=== PATIENT | male | born 1975 | race Caucasian/White ===

== ENCOUNTER 2023-03-28 17:30 | Emergency (ER) | payer OTHER, SELFPAY ==
[2023-03-28 17:43] VITALS: BP 138/103; PULSE 112; RESP 16; TEMP 36.6; O2SAT 99
--- NOTE | 2023-03-28 20:37 | ED.BACK ---
HPI - Back Pain/Injury General Chief Complaint: Back Pain/Injury Stated Complaint: back pain Time Seen by Provider: 03/28/23 20:37 History of Present Illness HPI Narrative: Patient is a 47-year-old male with history of asthma here with lower back pain. Patient notes history of intermittent back pain over the last several years. Patient notes that last night he had a miss-step and felt him pull something in his back. He notes it is worsening throughout the day today limiting his ability to work. He notes it is bilateral, worse on the right and worse with walking. he has attempted Tylenol at home, last dose around noon today, minimal relief of symptoms. He denies any trauma. He denies any bowel or bladder incontinence, no saddle anesthesia, no numbness or weakness in legs, no history of IVDU, no history of cancer. No fever or chills. Related Data Allergies Allergy/AdvReac Type Severity Reaction Status Date / Time cat dander Allergy Difficulty Verified 03/28/23 20:55 Breathing Penicillins Allergy Itching Verified 03/28/23 20:55 hog hair Allergy Difficulty Uncoded 03/28/23 20:55 Breathing Review of Systems Review of Systems: CONSTITUTIONAL: Denies fever, chills, or sweats. CARDIOVASCULAR: Denies chest pain, palpitations, or edema. RESPIRATORY: Denies cough or dyspnea. GASTROINTESTINAL: Denies abdominal pain, nausea, vomiting, or diarrhea. GENITOURINARY: Denies dysuria or hematuria. SKIN: Denies rash or itching. MUSCULOSKELETAL: Back pain NEUROLOGIC: Denies headache, numbness, or weakness. PMFSH Family History Family History (Updated 03/21/23 @ 09:01 by NENA Orellana) Father Hypertension Heart disease Mother Diabetes mellitus Hypertension Sibling Heart disease Hypertension Grandparent Cancer Diabetes mellitus Hypertension Cerebrovascular accident Social History Social History (Updated 03/21/23 @ 09:12 by NENA Orellana) Smoking status: Current every day smoker Lack of Transportation: No Lack of Food: Sometimes True Current Housing: I Have Housing Concerned About Future Housing: No Difficulty Paying Gas/Electric Bills: No Difficulty Paying for Meds: No Currently Unemployed: YES Education: Grade School Difficulty w/ Childcare or Family Care: No Exam Narrative: GENERAL: Well-appearing, well-nourished, and in no acute distress. HEAD: Normocephalic, atraumatic. EYES: PERRLA and EOMI. ENT: Nares clear. Mucous membranes moist. NECK: Supple. CHEST: Clear to auscultation. No respiratory distress. HEART: Regular rate and rhythm. Normal peripheral pulses. ABDOMEN: Soft, nontender, nondistended. EXTREMITIES: Normal range of motion. + straight leg raise on the right. right paraspinal tenderness present in upper lumbar region, no midline tenderness. SKIN: Warm, dry, no rash. NEURO: No focal deficits. Alert and oriented x3. Normal strength and sensation in lower extremities. PSYCH: Normal mood and affect. Course Course Emergency Course: Chart review performed. Patient here with back pain. No prior ED visits in our system. Patient is a 47-year-old male, healthy, here with back pain, no red flag symptoms. Will do Tylenol, Flexeril, Toradol. Will discharge on Flexeril and Tylenol and Ibuprofen. Patient re-evaluated, has had some relief of his symptoms. Heart rate is improved. Return precautions discussed with patient including any red flag symptoms. He verbalized understanding. Will give him work note. Advised rest. The results of pertinent diagnostic studies and exam findings were discussed. The patient?s provisional diagnosis and plan of care were discussed with the patient and present family. The patient and/or present family expressed understanding of the diagnosis and plan. The nurse was instructed to provide written instructions and appropriate follow-up information. The patient understands their need and responsibility to obtain additiona
[2023-03-28 20:49] VITALS: BP 140/106; PULSE 98; RESP 15; TEMP 36.9; O2SAT 100
[2023-03-28] MEDS: ACETAMINOPHEN 500 MG TABLET 1000 MG PO (21:02)
[2023-03-28] MEDS: CYCLOBENZAPRINE HCL 5 MG TABLET PO (21:02)
[2023-03-28] MEDS: KETOROLAC 15 MG/ML VIAL (*BKC) IM (21:03)
== END 2023-03-28 21:35 | disposition home or self-care (01) ==
PROVIDERS: Emergency Provider Student in an Organized Health Care Education/Training Program; PCP Nurse Practitioner Family
DX: S39.012A Strain of muscle, fascia and tendon of lower back, initial encounter (principal); J45.909 Unspecified asthma, uncomplicated; F17.200 Nicotine dependence, unspecified, uncomplicated; X50.9XXA Other and unspecified overexertion or strenuous movements or postures, initial encounter
CPT/HCPCS: 96372; 99283; A9270; J1885

== ENCOUNTER 2023-05-09 00:59 | Day surgery (SDC) | payer OTHER, SELFPAY ==
--- NOTE | 2023-05-07 09:33 | PM.HPGS ---
History of Present Illness History of Present Illness Consent: Risks, benefits, and alternatives have been discussed and questions answered. Patient agrees to proceed with procedure. Chief complaint: neoplasm screening Narrative: Joel Ramos Jr. is a 47 year old male Who was referred for colon cancer screening. Review of Systems Review of Systems: All systems reviewed & are unremarkable except as noted in HPI and below PMFSH Family History Family History Father Hypertension Heart disease Mother Diabetes mellitus Hypertension Sibling Heart disease Hypertension Grandparent Cancer Diabetes mellitus Hypertension Cerebrovascular accident Social History Social History Smoking packs per day: 1.5 Smoking cigarettes per day: 30.0 Years smoked: 20 Smoking pack-years: 30.00 Smoking status: Current every day smoker Tobacco type: cigarettes Alcohol intake: current Alcohol use details: occasional at social events Substance use: former 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 Lack of Transportation: No Lack of Food: Sometimes True Current Housing: I Have Housing Concerned About Future Housing: No Difficulty Paying Gas/Electric Bills: No Difficulty Paying for Meds: No Currently Unemployed: YES Education: Grade School Difficulty w/ Childcare or Family Care: No Living arrangements: alone Spiritual care concerns: No Meds Home Medications and Allergies Home Medications Medication Instructions Recorded Confirmed Type acetaminophen 325 mg capsule 650 mg PO Q6H PRN pain #30 caps 03/28/23 04/29/23 Rx (Tylenol) ibuprofen 400 mg tablet 400 mg PO Q6H PRN pain #30 tabs 03/28/23 04/29/23 Rx Allergies Allergy/AdvReac Type Severity Reaction Status Date / Time cat dander Allergy Difficulty Verified 05/09/23 11:27 Breathing Penicillins Allergy Itching Verified 05/09/23 11:27 hog hair Allergy Difficulty Uncoded 04/29/23 08:56 Breathing Exam Const: General: alert Orientation/consciousness: patient oriented x3 Resp: Auscultation: clear to auscultation bilaterally Cardio: Rhythm: regular rhythm GI: GI Palp: Yes Soft to palpation and No Tenderness to palpation present (GI) Neuro: General: patient oriented x3 Assessment and Plan Assessment and plan (1) Colon cancer screening: Code(s): Z12.11 - Encounter for screening for malignant neoplasm of colon Status: Acute Assessment and Plan: Colonoscopy with possible biopsy or polypectomy or cautery or injection of substances.
[2023-05-09] MEDS: LACTATED RINGERS 1,000 ML 150 ML IV CONT (11:45)
[2023-05-09 11:47] VITALS: BP 132/86; PULSE 93; RESP 18; TEMP 36.6; O2SAT 100
[2023-05-09 12:39] VITALS: BMI 29.3
[2023-05-09] MEDS: MIDAZOLAM HCL (*CRX) 2 MG/2 ML VIAL IV PUSH (12:53)
[2023-05-09 13:45] VITALS: BP 82/51; PULSE 86; RESP 18; O2SAT 92
[2023-05-09 13:55] VITALS: BP 87/54; PULSE 83; RESP 17; O2SAT 92
[2023-05-09 14:05] VITALS: BP 111/77; PULSE 76; RESP 17; O2SAT 96
== END 2023-05-09 14:13 | disposition home or self-care (01) ==
PROVIDERS: PCP Nurse Practitioner Family; Visit Provider Internal Medicine Gastroenterology
PROC: 0DJD8ZZ Inspection of Lower Intestinal Tract, Via Natural or Artificial Opening Endoscopic (ICD-10-PCS; CPT 45378; principal; 2023-05-09 13:00)
DX: Z12.11 Encounter for screening for malignant neoplasm of colon (principal); K64.8 Other hemorrhoids; F17.210 Nicotine dependence, cigarettes, uncomplicated
CPT/HCPCS: 45378; J2001; J2250; J2704; J7120